=== PATIENT | male | born 1945 | race Caucasian/White ===

== ENCOUNTER 2016-09-09 14:53 | Outpatient (CLI) | payer MEDICARE, BC ==
[~2016-09-09] VITALS: Ht 160 cm; Wt 60.0 kg
[2016-09-09 15:10] VITALS: BP 134/73; PULSE 93; RESP 18; Ht 160 cm; Wt 60.0 kg
== END 2016-09-09 16:52 | disposition home or self-care (01) ==
LOC: HPC 14:53
PROVIDERS: ATTEND Transplant Surgery
DX: C20 Malignant neoplasm of rectum (principal); I10 Essential (primary) hypertension; N42.9 Disorder of prostate, unspecified
CPT/HCPCS: G0463